=== PATIENT | male | born 1940 | race Caucasian/White ===

== ENCOUNTER → 2016-07-15 | Outpatient (CLI) | payer MEDICARE, BC ==
[2016-07-15 10:55] LABS: Basophils % (A) 1 %; CH 31.8; CHCM 34.3; Eosinophils # (A) 0.2 k/uL (0-0.7); Eosinophils % (A) 4 %; HCT 38.3 % (39.0-53.0); HGB 12.8 gm/dL (13.0-17.5); Luc # (Auto) 0.19; Luc % (Auto) 3; Lymphocytes # (A) 1.3 k/uL (1.0-4.8); Lymphocytes % (A) 24 %; MCH 31.2 pg (25.0-35.0); MCHC 33.5 g/dL (31.0-37.0); MCV 92.9 fL (80.0-100.0); Monocytes # (A) 0.4 k/uL (0-1.0); Monocytes % (A) 8 %; Neutrophils # (A) 3.3 k/uL (1.3-7.7); Neutrophils % (A) 61 %; RBC 4.12 m/uL (4.30-5.90); RDW 14.4 % (11.5-15.5); WBC 5.5 k/uL (3.8-10.6); WBC (Perox) 5.69
[2016-07-15 10:58] LABS: Appearance,Urine Clear (Clear); Bilirubin,Urine Negative (Negative); Glucose,Urine (UA) Negative (Negative); Ketones,Urine Negative (Negative); Leukocyte Esterase,Urine Negative (Negative); Mucus,Urine Rare /hpf; Nitrite,Urine Negative (Negative); PH, Urine 6.5 (5.0-8.0); Particle Count 708; Protein,Urine 1+ (Negative); RBC,Urine <1 /hpf (0-5); Specific Gravity,Urine 1.019 (1.001-1.035); UA Billing (MACRO vs. MICRO) MICRO; Urobilinogen,Urine <2.0 mg/dL (<2.0); WBC,Urine <1 /hpf (0-5)
[2016-07-15 12:40] LABS: Hemoglobin A1C 7.5 % (4.2-6.1)
[2016-07-15 13:34] LABS: ALT 55 U/L (21-72); AST 44 U/L (17-59); Alkaline Phosphatase 62 U/L (38-126); Anion Gap 12 mmol/L; Blood Urea Nitrogen 21 mg/dL (9-20); Calcium 9.5 mg/dL (8.4-10.2); Carbon Dioxide 28 mmol/L (22-30); Chloride 106 mmol/L (98-107); Cholesterol 182 mg/dL (<200); Glucose 166 mg/dL (74-99); HDL Cholesterol 50 mg/dL (40-60); Non-African American GFR(MDRD) >60 (>60 ml/min/1.73 sqM); Potassium 4.4 mmol/L (3.5-5.1); Sodium 146 mmol/L (137-145); Total Bilirubin 0.7 mg/dL (0.2-1.3); Total Protein 7.1 g/dL (6.3-8.2); Triglycerides 215 mg/dL (<150)
[2016-07-15 13:54] LABS: Follicle Stimulating Hormone 8.1 mIU/mL; Prolactin 7.2 ng/mL (3.7-17.9)
[2016-07-15 14:25] LABS: Vitamin B12 866 pg/mL
== END | disposition home or self-care (01) ==
LOC: LABWHC1 10:31
PROVIDERS: ATTEND Specialist
DX: E10.65 Type 1 diabetes mellitus with hyperglycemia (principal); E10.69 Type 1 diabetes mellitus with other specified complication
CPT/HCPCS: 36415; 80053; 80061; 81001; 82306; 82607; 82947; 83001; 83002; 83036; 83970; 84146; 84402; 84403; 84443; 84681; 85025

== ENCOUNTER → 2017-12-03 | Outpatient (CLI) | payer MEDICARE, BC ==
[2017-12-03 11:18] LABS: Albumin 4.4 g/dL (3.5-5.0); Calcium 9.6 mg/dL (8.4-10.2); Magnesium 1.9 mg/dL (1.6-2.3); Phosphorus 3.2 mg/dL (2.5-4.5); Potassium 4.3 mmol/L (3.5-5.1); Total Bilirubin 0.4 mg/dL (0.2-1.3); Total Protein 7.1 g/dL (6.3-8.2)
[2017-12-03 11:30] LABS: Basophils % (A) 1 %; Eosinophils # (A) 0.2 k/uL (0-0.7); Eosinophils % (A) 4 %; HCT 39.1 % (39.0-53.0); HGB 13.4 gm/dL (13.0-17.5); Lymphocytes # (A) 1.4 k/uL (1.0-4.8); Lymphocytes % (A) 33 %; MCH 32.6 pg (25.0-35.0); MCHC 34.3 g/dL (31.0-37.0); MCV 94.9 fL (80.0-100.0); Mean Platelet Volume 6.5; Monocytes # (A) 0.3 k/uL (0-1.0); Monocytes % (A) 7 %; Neutrophils # (A) 2.2 k/uL (1.3-7.7); Neutrophils % (A) 53 %; Platelet Count 231 k/uL (150-450); RBC 4.12 m/uL (4.30-5.90); RDW 13.5 % (11.5-15.5); WBC 4.2 k/uL (3.8-10.6)
[2017-12-03 11:42] LABS: Appearance,Urine Clear (Clear); Bilirubin,Urine Negative (Negative); Blood,Urine Negative (Negative); Color,Urine Yellow; Glucose,Urine (UA) Negative (Negative); Ketones,Urine Negative (Negative); Leukocyte Esterase,Urine Negative (Negative); Nitrite,Urine Negative (Negative); PH, Urine 5.5 (5.0-8.0); Protein,Urine Trace (Negative); Specific Gravity,Urine 1.019 (1.001-1.035); Urobilinogen,Urine <2.0 mg/dL (<2.0)
[2017-12-03 12:15] LABS: Creatinine,Urine Random 122.8 mg/dL
[2017-12-03 18:58] LABS: Hemoglobin A1C 6.4 % (4.0-6.0)
== END | disposition home or self-care (01) ==
LOC: LABWHC1 10:25
PROVIDERS: ATTEND Internal Medicine Cardiovascular Disease
DX: E78.00 Pure hypercholesterolemia, unspecified (principal); N17.9 Acute kidney failure, unspecified; E11.9 Type 2 diabetes mellitus without complications
CPT/HCPCS: 36415; 80053; 80061; 81003; 82570; 83036; 83735; 84100; 84156; 85025

== ENCOUNTER → 2018-07-02 | Outpatient (CLI) | payer MEDICARE, BC ==
--- NOTE | 2018-07-02 08:06 | XR ---
EXAMINATION TYPE: XR chest 2V DATE OF EXAM: 07/02/2018 COMPARISON: 06/02/2015 HISTORY: 77-year-old male with cough TECHNIQUE: Frontal and lateral views FINDINGS: Left anterior chest wall pacemaker generator with right atrial and right ventricular leads. Heart is upper limits of normal in size. Some strandy atelectasis in the lower lungs. No consolidation or pleu ral effusion. Bridging anterior endplate spondylosis midthoracic spine. IMPRESSION: Chronic changes and borderline heart size. No acute cardiopulmonary process.
--- NOTE | 2018-07-02 08:45 | CT ---
EXAMINATION TYPE: CT sinus wo con DATE OF EXAM: 07/02/2018 COMPARISON: None HISTORY: 77-year-old male with chronic sinusitis CT DLP: 221 mGycm Automated exposure control for dose reduction was used. TECHNIQUE: Noncontrast axial views of the paranasal sinuses were obtained. Coronal reconstructions pe rformed. FINDINGS: PARANASAL SINUSES: There is mild mucosal thickening within the left greater than right maxillary sinuses. The ethmoid, f rontal, and sphenoid sinuses are well pneumatized. There is no air-fluid level. Reactive melissa- osteogenesis is not seen. There is no destruction of the osseous thomas of the paranasal sinuses. THE NASAL CAVITY: The osteomeatal complexes are patent. There is slight leftward nasal septal deviation. The imaged brain and orbits are normal in appearance. Mastoid air cells and middle ear cavities are well pneumatized. Reformatted images confirm above findings. IMPRESSION: Mild chronic maxillary sinusitis, left greater than right. Slight leftward nasal septal deviation.
== END | disposition home or self-care (01) ==
LOC: RADCTMAIN 06:17
PROVIDERS: ATTEND Otolaryngology
DX: J32.0 Chronic maxillary sinusitis (principal); J34.2 Deviated nasal septum; R05 Cough
CPT/HCPCS: 70486; 71046

== ENCOUNTER → 2018-10-28 | Outpatient (CLI) | payer MEDICARE, BC ==
[2018-10-28 20:03] LABS: Albumin 4.3 g/dL (3.80-4.90); Albumin/Globulin Ratio 2.15 (1.60-3.17); Anion Gap 8.5 mmol/L (4.00-12.00); Calcium 9.2 mg/dL (8.7-10.3); Carbon Dioxide 24.5 mmol/L (21.6-31.8); Potassium 4.3 mmol/L (3.5-5.5); Total Bilirubin 0.7 mg/dL (0.2-1.2); Total Protein 6.3 g/dL (6.2-8.2)
== END | disposition home or self-care (01) ==
LOC: LABWHC1 13:52
PROVIDERS: ATTEND Internal Medicine Endocrinology, Diabetes & Metabolism
DX: E11.65 Type 2 diabetes mellitus with hyperglycemia (principal)
CPT/HCPCS: 36415; 80053; 80061; 82043; 82570; 84443

== ENCOUNTER → 2019-11-10 | Outpatient (CLI) | payer MEDICARE, BC ==
[2019-11-10 15:18] LABS: African American GFR (CKD) 67.2 (60.0-200.0); Albumin 4.3 g/dL (3.80-4.90); Albumin/Globulin Ratio 1.79 (1.60-3.17); BUN/Creat Ratio 22.5 Ratio (12.00-20.00); Calcium 9.8 mg/dL (8.7-10.3); Chol/HDL Ratio 4.8; Globulin 2.4 g/dL (1.6-3.3); LDL Cholesterol,Calculated 72.6 mg/dL (0.0-131.0); Total Bilirubin 0.5 mg/dL (0.2-1.2); Total Protein 6.7 g/dL (6.2-8.2); VLDL Calculation 79.4 mg/dL (5.00-40.00)
[2019-11-10 16:44] LABS: Hemoglobin A1C 7.4 % (4.0-6.0)
[2019-11-10 20:13] LABS: Urine Creatinine 147.1 mg/dL
== END | disposition home or self-care (01) ==
LOC: LABWHC1 09:45
PROVIDERS: ATTEND Internal Medicine Endocrinology, Diabetes & Metabolism
DX: E11.65 Type 2 diabetes mellitus with hyperglycemia (principal); I10 Essential (primary) hypertension; E78.2 Mixed hyperlipidemia; E11.42 Type 2 diabetes mellitus with diabetic polyneuropathy; Z79.4 Long term (current) use of insulin
CPT/HCPCS: 36415; 80053; 80061; 82043; 82570; 83036; 84443

== ENCOUNTER 2020-04-13 17:33 | Emergency (ER) | payer MEDICARE, BC ==
[2020-04-13 18:02] VITALS: RESP 18
[2020-04-13] MEDS ORDERED: DIPH,PERTUS(ACELL)TETVAC-LF 0.5 ML VIAL IM ONE (18:14)
[2020-04-13] MEDS ORDERED: CEPHALEXIN 500MG STARTER PACK 4 CAP BTL PO STA (18:14)
--- NOTE | 2020-04-13 18:33 | ED ---
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 He states that he needs a TDAP. Pt reports that he arrived his blood pressure is high, and he is compliant with his medications. Pt denies chest pain, headache, shortness of breath or other complaints. Pt wants to ensure he will not get an infection from his cut. - Related Data Home Medications Medication Instructions Recorded Confirmed metFORMIN HCL [Glucophage] 500 mg PO BID 07/09/14 04/14/18 Pravastatin Sodium [Pravachol] 80 mg PO HS 10/23/14 04/14/18 Temazepam [Restoril] 30 mg PO HS PRN 04/04/15 04/14/18 Vitamin B Complex 1 cap PO DAILY 04/04/15 04/14/18 Amitriptyline HCl 50 mg PO HS 03/16/18 04/14/18 Apixaban [Eliquis] 5 mg PO BID 03/16/18 04/14/18 Cyanocobalamin (Vitamin B-12) 1,000 mcg PO DAILY 03/16/18 04/14/18 [Vitamin B-12] Donepezil HCl [Aricept ODT] 5 mg PO DAILY 03/16/18 04/14/18 Insulin Aspart [Novolog Flexpen] 100 unit SQ ACHS 03/16/18 04/14/18 Insulin Glargine [Lantus] 20 unit SQ BID 03/16/18 04/14/18 Levocetirizine Dihydrochloride 5 mg PO DAILY 03/16/18 04/14/18 [Xyzal] Metoprolol Succinate [Toprol XL] 100 mg PO DAILY 03/16/18 04/14/18 Multivitamin [Men's Multi-Vitamin] 1 tablet PO DAILY 03/16/18 04/14/18 amLODIPine BESYLATE [Norvasc] 10 mg PO DAILY 03/16/18 04/14/18 Previous Rx's Medication Instructions Recorded Furosemide [Lasix] 20 mg PO DAILY #30 tab 06/05/15 Losartan [Cozaar] 100 mg PO DAILY #30 tab 06/05/15 Cephalexin [Keflex] 500 mg PO Q6HR 3 Days #12 cap 04/13/20 Allergies Allergy/AdvReac Type Severity Reaction Status Date / Time No Known Allergies Allergy Verified 04/13/20 18:03 Review of Systems ROS Statement: Those systems with pertinent positive or pertinent negative responses have been documented in the HPI. ROS Other: All systems not noted in ROS Statement are negative. Past Medical History Past Medical History: Coronary Artery Disease (CAD), Dementia, Diabetes Mellitus, Hyperlipidemia, Hypertension Additional Past Medical History / Comment(s): Other HX: ARTHRITIS, NUMBNESS TO LEFT LEG RELATED TO PREVIOUS HIP SURGERY History of Any Multi-Drug Resistant Organisms: None Reported Past Surgical History: Heart Catheterization With Stent Additional Past Surgical History / Comment(s): 07/07/14 PTCA with stent in LCX. SURGERY FOR FX PELVIS Past Anesthesia/Blood Transfusion Reactions: No Reported Reaction Date of Last Stent Placement:: 07/07/14 Past Psychological History: No Psychological Hx Reported Smoking Status: Never smoker Past Alcohol Use History: Rare Past Drug Use History: None Reported - Past Family History Father Family Medical History: Asthma, Coronary Artery Disease (CAD) Mother Family Medical History: Dementia, Hypertension General Exam - General Exam Comments Initial Comments: 79 year old male, no distress. Limitations: no limitations General appearance: alert, in no apparent distress Head exam: Present: atraumatic, normocephalic, normal inspection Eye exam: Present: normal appearance, PERRL, EOMI. Absent: scleral icterus, conjunctival injection, periorbital swelling ENT exam: Present: normal exam, mucous membranes moist Neck exam: Present: normal inspection. Absent: tenderness, meningismus, lymphadenopathy Respiratory exam: Present: normal lung sounds bilaterally. Absent: respiratory distress, wheezes, rales, rhonchi, stridor Cardiovascular Exam: Present: regular rate, normal rhythm, normal heart sounds. Absent: systolic murmur, diastolic murmur, rubs, gallop, clicks GI/Abdominal exam: Present: soft (f), normal bowel sounds. Absent: distended, tenderness, guarding, rebound, rigid Extremities exam: Present: normal inspection, full ROM, normal capillary refill. Absent: tenderness, pedal edema, joint swelling, calf tenderness Back exam: Present: normal inspection Neurological exam: Present: alert, oriented X3, CN II-XII intact Psychiatric exam: Present: normal affect, normal mood Skin exam: Present: warm, dry, intact, normal color. Absent: rash Course Vital Signs 04/13/20 04/13/20 04/13/20 17:57 18:40 18:56 Temperature 98.3 F 97.9 F Pulse Rate 60 64 60 Respiratory 18 18 18 Rate Blood Pressure 196/74 155/70 149/74 O2 Sat by Pulse 98 96 96 Oximetry Procedures - Laceration Laceration #1 Site: lower extremity (R thigh) Size (cm): 1 Description: linear Depth: simple, single layer Pre-repair: wound explored, irrigated extensively Type of Sutures: other (steristrip) Patient Tolerated Procedure: well, no complications Medical Decision Making - Medical Decision Making 79 year old male presents today for eval for puncture wound from knife on R thigh. Area measures less than 1cm and discussed closure with steristrip after I throughly cleaned the site. Pt given updated TDAP. Pt was concerned about blood pressure, but it normalized after pt was sitting in room. Eventually 146/70. Discussed to continue to monitor blood pressure but no further adjustments to BP medications at this time. Discussed PCP follow up in regard to blood pressure and to return to ED if area of puncutre wound starts to look infected. Disposition Clinical Impression: Puncture wound of right lower extremity, Hx of essential hypertension Disposition: HOME SELF-CARE Condition: Good Instructions (If sedation given, give patient instructions): Puncture Wound (ED) Additional Instructions: Patient advised to keep area clean. Monitor for any signs of infection including redness swelling or drainage. The Steri-Strips should remain intact until it is ready to follow-up within the next 3 days.. Prescriptions: Cephalexin [Keflex] 500 mg PO Q6HR 3 Days #12 cap Is patient prescribed a controlled substance at d/c from ED?: No Referrals: Jani Encarnacion DO [Primary Care Provider] - 1-2 days Time of Disposition: 18:32
[2020-04-13 18:58] VITALS: BP 149/74; PULSE 60; TEMP 97.9
== END 2020-04-13 18:58 | disposition home or self-care (01) ==
LOC: EC 17:33
DX: S71.131A Puncture wound without foreign body, right thigh, initial encounter (principal); I10 Essential (primary) hypertension; Z23 Encounter for immunization; E11.9 Type 2 diabetes mellitus without complications; F03.90 Unspecified dementia, unspecified severity, without behavioral disturbance, psychotic disturbance, mood disturbance, and anxiety; E78.5 Hyperlipidemia, unspecified; Z79.01 Long term (current) use of anticoagulants; Z79.4 Long term (current) use of insulin; Z79.899 Other long term (current) drug therapy; Z95.5 Presence of coronary angioplasty implant and graft; W26.0XXA Contact with knife, initial encounter; Y93.G3 Activity, cooking and baking; Y92.511 Restaurant or cafe as the place of occurrence of the external cause
CPT/HCPCS: 90471; 90715; 99283

== ENCOUNTER → 2020-04-20 | Outpatient (CLI) | payer MEDICARE, BC ==
--- NOTE | 2020-04-20 15:45 | XR ---
EXAMINATION TYPE: XR wrist complete RT DATE OF EXAM: 04/20/2020 COMPARISON: NONE HISTORY: 79 year-old male right wrist pain, pain and swelling TECHNIQUE: 4 views FINDINGS: Generalized soft tissue swelling is present. No acute fracture, subluxation, dislocation is seen. Mil d degenerative change at the first CMC joint. Some subtle vascular calcifications are present along t he radial aspect of the wrist. IMPRESSION: Soft tissue swelling. No acute osseous abnormality seen. Mild degenerative change at the base of the thumb.
== END | disposition home or self-care (01) ==
LOC: RADXRMAIN 13:34
PROVIDERS: ATTEND Family Medicine
DX: M79.89 Other specified soft tissue disorders (principal)

== ENCOUNTER → 2020-06-07 | Outpatient (CLI) | payer MEDICARE, BC ==
[2020-06-07 12:19] LABS: Appearance,Urine Cloudy (Clear); Bacteria,Urine Occasional /hpf; Bilirubin,Urine Negative (Negative); Blood,Urine Negative (Negative); Color,Urine Light Yellow; Glucose,Urine (UA) Negative (Negative); Ketones,Urine Negative (Negative); Leukocyte Esterase,Urine Negative (Negative); Mucus,Urine Rare /hpf; Nitrite,Urine Negative (Negative); PH, Urine 5.5 (5.0-8.0); Protein,Urine Trace (Negative); RBC,Urine <1 /hpf (0-5); Specific Gravity,Urine 1.006 (1.001-1.035); Sperm,Urine Occasional /hpf; Squamous Epithelial Cell,Urine <1 /hpf (0-4); Urobilinogen,Urine <2.0 mg/dL (<2.0); WBC,Urine <1 /hpf (0-5)
[2020-06-07 15:57] LABS: African American GFR (CKD) 67.2 (60.0-200.0); Albumin 4.4 g/dL (3.80-4.90); Albumin/Globulin Ratio 1.91 (1.60-3.17); Anion Gap 10.4 mmol/L (4.00-12.00); BUN/Creat Ratio 24.17 Ratio (12.00-20.00); Calcium 9.3 mg/dL (8.7-10.3); Carbon Dioxide 23.6 mmol/L (21.6-31.8); Chol/HDL Ratio 3.42; Globulin 2.3 g/dL (1.6-3.3); LDL Cholesterol,Calculated 58.8 mg/dL (0.0-131.0); Potassium 3.6 mmol/L (3.5-5.5); Total Bilirubin 0.4 mg/dL (0.2-1.2); Total Protein 6.7 g/dL (6.2-8.2); VLDL Calculation 50.2 mg/dL (5.00-40.00)
[2020-06-07 17:09] LABS: Hemoglobin A1C 6.5 % (4.0-6.0)
[2020-06-07 23:15] LABS: Urine Creatinine 40.4 mg/dL
== END | disposition home or self-care (01) ==
LOC: LABWHC1 10:44
PROVIDERS: ATTEND Internal Medicine Endocrinology, Diabetes & Metabolism
DX: E11.65 Type 2 diabetes mellitus with hyperglycemia (principal); I10 Essential (primary) hypertension
CPT/HCPCS: 36415; 80053; 80061; 81001; 82043; 82088; 82570; 83036; 83835; 84244; 84443

== ENCOUNTER → 2020-11-21 | Outpatient (CLI) | payer MEDICARE, BC ==
--- NOTE | 2020-11-21 10:37 | XR ---
EXAMINATION TYPE: XR chest 2V DATE OF EXAM: 11/21/2020 COMPARISON: 07/02/2018 TECHNIQUE: PA and lateral views submitted. HISTORY: Shortness of breath and hemoptysis FINDINGS: The lungs are clear and there is no pneumothorax, pleural effusion, or focal pneumonia. Cardiac dev ice seen and there is a surgical clip involving the right upper lobe. Arthropathy shoulders. No overt failure. Hypertrophic and degenerative change of the spine. Bilateral pleural-based thickening. Mild hyperinflation. Arthropathy of the shoulders. IMPRESSION: 1. COPD with no acute process. If symptoms persist consider follow-up CT scan.
== END | disposition home or self-care (01) ==
LOC: RADXRMAIN 10:07
PROVIDERS: ATTEND Internal Medicine Cardiovascular Disease
DX: R04.2 Hemoptysis (principal); J44.9 Chronic obstructive pulmonary disease, unspecified
CPT/HCPCS: 71046

== ENCOUNTER → 2021-07-04 | Outpatient (CLI) | payer MEDICARE, BC ==
--- NOTE | 2021-07-05 06:53 | CT ---
EXAMINATION TYPE: CT chest wo con DATE OF EXAM: 07/04/2021 COMPARISON: Chest x-ray November 21, 2020 HISTORY: lung mass, prior abnormal x-ray. CT DLP: 558.6 mGycm. Automated Exposure Control for Dose Reduction was Utilized. TECHNIQUE: CT scan of the thorax is performed without IV contrast. FINDINGS: LUNGS: Slightly elevated left hemidiaphragm. Mild bibasilar linear scarring and/or atelectasis. No quezada spicious focal groundglass opacity or consolidation. No pleural effusion or pneumothorax. No suspicio us greater than 5 mm pulmonary nodules or masses. MEDIASTINUM: Lack of IV contrast is noted to limit evaluation for mediastinal and especially hilar ad enopathy. There are no definitive greater than 1 cm mediastinal lymph nodes. There is cardiomegaly wi th dual lead pacemaker. Three-vessel coronary artery calcification and/or stents. Ascending aortic an eurysm up to 4.2 cm axial image 30 OTHER: Bilateral subareolar flame-shaped gynecomastia. Scoliosis with moderate multilevel spurring in the thoracic spine. IMPRESSION: Cardiomegaly with mild bibasilar parenchymal scarring and/or atelectasis. No acute pulmon nay process. No suspicious pulmonary nodules or masses.
== END | disposition home or self-care (01) ==
LOC: RADCTMAIN 17:48
PROVIDERS: ATTEND Family Medicine
DX: I51.7 Cardiomegaly (principal); R91.8 Other nonspecific abnormal finding of lung field
CPT/HCPCS: 71250

== ENCOUNTER → 2022-10-16 | Outpatient (CLI) | payer MEDICARE, BC ==
[2022-10-16 15:26] LABS: Basophils # (A) 0.04 X 10*3/uL (0.00-0.10); Basophils % (A) 0.8 %; Eosinophils # (A) 0.09 X 10*3/uL (0.04-0.35); Eosinophils % (A) 1.8 %; HCT 32.1 % (39.6-50.0); HGB 10.8 g/dL (13.0-17.0); Immature Grans, Automated 0.6 %; Lymphocytes # (A) 1.06 X 10*3/uL (0.90-5.00); MCH 31.7 pg (27.0-32.0); MCHC 33.6 g/dL (32.0-37.0); MCV 94.1 fL (80.0-97.0); Mean Platelet Volume 9.7 fL (9.5-12.2); Monocytes # (A) 0.54 X 10*3/uL (0.20-1.00); Monocytes % (A) 10.7 %; NRBC Per 100 WBC 0 /100 WBCS (0.0-0.0); Neutrophils # (A) 3.29 X 10*3/uL (1.80-7.70); Neutrophils % (A) 65.1 %; Platelet Count 314 X 10*3/uL (140-440); RBC 3.41 X 10*6/uL (4.40-5.60); RDW 13.7 % (11.5-14.5); WBC 5.05 X 10*3/uL (4.50-10.00)
[2022-10-16 16:21] LABS: ALT 42 U/L (10-49); AST 27 U/L (14-35); African American GFR (CKD) 43.2 (60.0-200.0); Albumin 4.3 g/dL (3.8-4.9); Albumin/Globulin Ratio 1.65 (1.60-3.17); Alkaline Phosphatase 51 U/L (41-126); BUN/Creat Ratio 24.41 Ratio (12.00-20.00); Blood Urea Nitrogen 41.5 mg/dL (9.0-27.0); Calcium 9.4 mg/dL (8.7-10.3); Carbon Dioxide 20.4 mmol/L (20.0-27.5); Chloride 109 mmol/L (96-109); Chol/HDL Ratio 3.62 Ratio; Globulin 2.6 g/dL (1.6-3.3); Glucose 134 mg/dL (70-110); LDL Cholesterol,Calculated 68.9 mg/dL (0.0-131.0); Non-African American GFR(CKD) 37.3 (60.0-200.0); Potassium 4.6 mmol/L (3.5-5.5); Sodium 140 mmol/L (135-145); Total Protein 6.9 g/dL (6.2-8.2)
== END | disposition home or self-care (01) ==
LOC: LABWHC1 09:51
PROVIDERS: ATTEND Family Medicine
DX: Z12.5 Encounter for screening for malignant neoplasm of prostate (principal); I25.10 Atherosclerotic heart disease of native coronary artery without angina pectoris; E11.9 Type 2 diabetes mellitus without complications; E03.9 Hypothyroidism, unspecified; R04.2 Hemoptysis
CPT/HCPCS: 84439; 80061; 80053; 84443; 85025; 86480; 83036; 36415; G0103